=== PATIENT | male | born 1985 | race Caucasian/White ===

== ENCOUNTER → 2018-10-21 | Day surgery (SDC) | payer OTHER ==
[~2018-10-21] MED LIST: IBUPROFEN 400400 M2 PO; LEVAQUIN 500 M500 MG PO; NORCO 5-325 TA1 EACH PO; TRAMADOL 50 MG50 MG PO; VENTOLIN HFA 1818 GM INH
--- NOTE | ~2018-10-21 | OP ---
[facility] [address] [place] [address] OPERATIVE REPORT Name: HAYLEYGARRY Evans Room: [facility]#: [id number] Admission: 10/21/18 Attend Phys: Cedric Geller Discharge: Date of : 85 Report #: [id number] THIS REPORT FOR: //name// CC: Cedric Woodruff DATE OF SERVICE: 10/21/2018 PREOPERATIVE DIAGNOSIS: Symptomatic cholelithiasis. POSTOPERATIVE DIAGNOSIS: Symptomatic cholelithiasis. PROCEDURE: Laparoscopic cholecystectomy. SURGEON: Cedric Geller MD ANESTHESIA: General. ESTIMATED BLOOD LOSS: Minimal. SPECIMENS: Gallbladder. DESCRIPTION OF PROCEDURE: After informed consent was obtained, the patient was brought to the operating room and placed supine. SCDs were placed and working, preoperative antibiotics were administered, general anesthesia was induced. The abdomen was prepped and draped in the usual sterile fashion. A 10 mm incision was made above the umbilicus. Fascia was incised. Trocar was placed. Pneumoperitoneum was established. Three right upper quadrant 5 mm ports were placed. The gallbladder was grasped at the fundus and retracted cephalad. The infundibulum was grasped and retracted laterally. I dissected out the cystic duct and the cystic artery and the cystic plate. Cystic duct and artery were clipped and ligated leaving 2 clips on the remaining duct and 1 on the remaining artery. The gallbladder was then taken off the liver bed with electrocautery. It was placed into an Endopouch and removed. The fascia was then closed with a [id number]-un-bxnxo 0 Vicryl. Skin was closed with 4-0 Monocryl. Incisions were sealed with Dermabond. COMPLICATIONS: None. DISPOSITION: The patient was taken to recovery in satisfactory condition. By: [id number] Geller MD /nt
--- NOTE | ~2018-10-21 | H ---
[address] [address] HISTORY AND PHYSICAL Name: GARRY HARDY Room: [facility]#: [id number] Admission: 10/21/18 Attend Phys: Cedric Geller Discharge: Date of : 85 Report #: [id number] THIS REPORT FOR: //name// CC: Cedric Woodruff DATE OF SERVICE: 10/21/2018 CHIEF COMPLAINT: Abdominal pain. HISTORY OF PRESENT ILLNESS: This is a pleasant 33-year-old man with a 3-day history of abdominal pain. The pain is sharp, stabbing, located in the right upper quadrant. He had an ultrasound today, which demonstrates a large gallstone. 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 PAST SURGICAL HISTORY: He has had right knee meniscus surgery. SOCIAL HISTORY: No tobacco use. Alcohol use. He is employed. ALLERGIES: Listed in the chart. REVIEW OF SYSTEMS: A 12-point review of systems is negative except for those listed in the HPI. PHYSICAL EXAMINATION: GENERAL: He is awake, alert, in no acute distress. HEENT: Extraocular movements are intact. Sclerae without icterus. NECK: Supple. CARDIOVASCULAR: Regular rate and rhythm. CHEST: Fair air movement bilaterally. ABDOMEN: Soft, nondistended, moderately tender in the right upper quadrant. EXTREMITIES: Without clubbing, cyanosis or edema. NEUROLOGIC: Grossly intact. SKIN: Without rash or jaundice. ASSESSMENT AND PLAN: A 33-year-old man with symptomatic cholelithiasis, chronic cholecystitis. I will plan for laparoscopic cholecystectomy. Nature of the procedure, risks, benefits and alternatives were discussed with the patient and he requests to proceed. He was given time to ask questions and they were answered to his satisfaction. Some of the risks discussed included infection, [place] [address] HISTORY AND PHYSICAL Name: GARRY HARDY Room: [facility]#: [id number] Admission: 10/21/18 Attend Phys: Cedric Geller Discharge: Date of : 85 Report #: [id number] bleeding, damage to surrounding structures, damage to the common bile duct and bile leak. Fully informed. He consented to the procedure. By: [id number] [id number] Geller MD /davina
[2018-10-21 18:27] LABS: CALCIUM 8.6 mg/dL (8.5-10.1); CREATININE 1.2 mg/dL (0.6-1.3); POTASSIUM 4.1 mmol/L (3.5-5.1)
[2018-10-21 18:32] LABS: ALBUMIN 3.7 g/dL (3.4-5.0); TOTAL BILIRUBIN 0.8 mg/dL (<0.1-1.0); TOTAL PROTEIN 7.1 g/dL (6.4-8.2)
--- NOTE | 2018-10-26 09:08 | PATH ---
[facility] [address] [place] [address] PATHOLOGY RPT PROCEDURE Name: GARRY SHUKLA Room: [facility] M.R.#: [id number] Admission: 10/21/18 Date of : 85 Discharge: Report #: [id number] Path Case #: [id number] [facility] Accession Number: [id number] . 01 Material submitted: . gallbladder - GALLBLADDER . 01 Clinical history: . Cholelithiasis . 02 Diagnosis: Gallbladder, cholecystectomy: - Chronic cholecystitis, mild. - Cholelithiasis. (BEATRIZ:danilo; 10/25/2018) MBR/10/25/2018 . 02 Electronically signed: . Robert Parry MD, Pathologist NPI- [id number] . 01 Gross description: . The specimen is received in formalin, labeled "Garry Shukla, gallbladder", is intact gallbladder measuring 8.4 cm in length and 4.2 cm in maximum diameter with a glistening, smooth and a yellow-green serosa. The cystic duct is patent. The gallbladder lumen contains yellow-green, viscous bile and an irregular, glasslike semi-transparent calculus and measuring 1.9 x 1.3 x 1.0 cm. The mucosa is green and a trabeculated. The wall is 0.1 cm in average thickness. Painting Worker tissue is submitted in A1. (SWS; 10/24/2018) SHS/SHS . 02 Pathologist provided ICD-10: K80.10 . 02 CPT . 122188 Specimen Comment: A courtesy copy of this report has been sent to Specimen Comment: [phone], . Specimen Comment: Report sent to / DR MYLES Performed at: [address], [place], [place] [id number] MD Yosi Shukla MD Phone: [phone] Performed at: [address] [address] [place] [id number] MD Taurus Mahan MD Phone: [phone]
== END | disposition home or self-care (01) ==
LOC: M.SUR 17:02
PROVIDERS: Surgery
DX: K80.20 Calculus of gallbladder without cholecystitis without obstruction (principal); Z98.890 Other specified postprocedural states; Z88.2 Allergy status to sulfonamides; Z88.8 Allergy status to other drugs, medicaments and biological substances; Z79.899 Other long term (current) drug therapy

== ENCOUNTER 2018-10-22 16:34 | Emergency (ER) | payer OTHER ==
[~2018-10-22] VITALS: Ht 193 cm; Wt 130.2 kg
[~2018-10-22 16:34] MED LIST changes: -LEVAQUIN 500 M500 MG PO; -VENTOLIN HFA 1818 GM INH
[2018-10-22 16:40] VITALS: BP 129/80
[2018-10-22 17:06] LABS: BE -0.5 mmol/L (-2 to +3); PCO2 29.5 mmHg (35.0-45.0); pH 7.483 (7.340-7.450)
[2018-10-22 17:07] LABS: HEMOGLOBIN 14.8 gm/dL (14.0-18.0)
[2018-10-22 17:08] LABS: PO2 58.3 mmHg (75.0-100.0)
[2018-10-22 17:10] LABS: HEMATOCRIT 42.1 % (42.0-52.0); MCH 35.4 pg (26.0-34.0); MCHC 35.2 g/dL (28.0-37.0); MCV 100.5 fL (80.0-100.0); MPV 8.7 fl. (7.2-11.1); NUCLEATED RBCS 0 /100WBC; PLATELET COUNT* 192 thou/uL (150-400); RBC 4.19 mil/uL (4.50-6.00); WBC 9.3 thou/uL (4.0-11.0)
[2018-10-22 17:16] LABS: CALCIUM 8.4 mg/dL (8.5-10.1); CREATININE 1.3 mg/dL (0.6-1.3); POTASSIUM 3.9 mmol/L (3.5-5.1)
[2018-10-22 17:20] LABS: ALBUMIN 3.5 g/dL (3.4-5.0); MAGNESIUM 1.6 mg/dL (1.8-2.4); TOTAL BILIRUBIN 0.9 mg/dL (<0.1-1.0); TOTAL PROTEIN 7.4 g/dL (6.4-8.2)
[2018-10-22 17:38] LABS: INR 1.1; PROTIME 10.8 Seconds (9.20-11.50)
[2018-10-22 17:46] LABS: ABSOLUTE LYMPHOCYTES 0.4 thou/uL (0.8-5.3); ABSOLUTE MONOCYTES 0.7 thou/uL (0.0-1.2); ABSOLUTE NEUTROPHILS 8.2 thou/uL (1.6-8.1); PLATELET ESTIMATE ADEQUATE
[2018-10-22 17:47] LABS: MACROCYTES 1+
[2018-10-22 18:42] LABS: URINE BILIRUBIN NEGATIVE (Negative); URINE BLOOD NEGATIVE (Negative); URINE CLARITY CLEAR; URINE COLOR YELLOW; URINE GLUCOSE-RANDOM NEGATIVE (Negative); URINE KETONES NEGATIVE (Negative); URINE LEUKOCYTES-REFLEX NEGATIVE (Negative); URINE NITRITE-REFLEX NEGATIVE (Negative); URINE PROTEIN NEGATIVE (Negative); URINE SPECIFIC GRAVITY <= 1.005 (1.005-1.030)
[2018-10-22] MEDS ORDERED: VENTOLIN HFA 1818 GM INH (21:26)
[2018-10-22] MEDS ORDERED: LEVAQUIN 500 M500 MG PO (21:26)
[2018-10-22 22:16] VITALS: BP 136/88
--- NOTE | 2018-10-22 22:18 | NUR ---
HOSPITALIST INTO ROOM TO ASSESS PT FOR ADMISSION. PT STATES THAT HE WANTS TO GO HOME. PER JOHNNIE AND DR. BURGER, PT OKAY TO GO HOME. PT EDUCATED ON WHAT SIGNS AND SYMPTOMS TO WATCH FOR TO COME BACK.
== END 2018-10-22 22:29 | disposition home or self-care (01) ==
LOC: M.ERS 16:34 → M.TBA-ER 20:29 → M.ERS 20:29 → M.2W 21:00 → M.TBA-ER 21:00 → M.ERS 22:29
PROVIDERS: Personal Emergency Response Attendant
DX: I26.99 Other pulmonary embolism without acute cor pulmonale (principal); R50.9 Fever, unspecified; Z88.2 Allergy status to sulfonamides; Z88.8 Allergy status to other drugs, medicaments and biological substances; Z90.49 Acquired absence of other specified parts of digestive tract

== ENCOUNTER → 2018-10-24 | Outpatient (CLI) | payer OTHER ==
[~2018-10-24] MED LIST changes: +LEVAQUIN 500 M500 MG PO; +VENTOLIN HFA 1818 GM INH
== END ==
LOC: M.RAD 08:45
DX: J98.4 Other disorders of lung (principal); Z88.2 Allergy status to sulfonamides

== ENCOUNTER 2018-10-31 17:03 | Inpatient (IN) | payer OTHER ==
[~2018-10-31] VITALS: Ht 193 cm; Wt 127.6 kg
[2018-10-31 21:05] LABS: ABSOLUTE BASOPHILS 0.1 thou/uL (0.0-0.2); ABSOLUTE LYMPHOCYTES 2.6 thou/uL (0.8-5.3); ABSOLUTE MONOCYTES 1.7 thou/uL (0.0-1.2); ABSOLUTE NEUTROPHILS 12.7 thou/uL (1.6-8.1); BASOPHILS 0.5 %; EOSINOPHILS 0.1 %; HEMATOCRIT 41.6 % (42.0-52.0); HEMOGLOBIN 13.9 gm/dL (14.0-18.0); LYMPHOCYTES 15.4 %; MCH 33.7 pg (26.0-34.0); MCHC 33.4 g/dL (28.0-37.0); MCV 100.8 fL (80.0-100.0); MONOCYTES 9.8 %; MPV 8.6 fl. (7.2-11.1); NUCLEATED RBCS 0 /100WBC; PLATELET COUNT* 402 thou/uL (150-400); POLYS 74.2 %; RBC 4.12 mil/uL (4.50-6.00); RDW-CV 14.5 % (10.5-14.5); WBC 17.1 thou/uL (4.0-11.0)
[2018-10-31 21:15] LABS: CALCIUM 8.8 mg/dL (8.5-10.1); CREATININE 1.2 mg/dL (0.6-1.3)
[2018-10-31 21:25] LABS: URINE BILIRUBIN NEGATIVE (Negative); URINE BLOOD NEGATIVE (Negative); URINE CLARITY CLEAR; URINE COLOR YELLOW; URINE GLUCOSE-RANDOM NEGATIVE (Negative); URINE KETONES TRACE (Negative); URINE LEUKOCYTES-REFLEX NEGATIVE (Negative); URINE NITRITE-REFLEX NEGATIVE (Negative); URINE PROTEIN NEGATIVE (Negative); URINE SPECIFIC GRAVITY <= 1.005 (1.005-1.030); URINE UROBILINOGEN 0.2 E.U./dl (0.2-1.0)
[2018-10-31 21:27] LABS: TOTAL BILIRUBIN 0.6 mg/dL (<0.1-1.0); TOTAL PROTEIN 7.9 g/dL (6.4-8.2)
[2018-11-01] VITALS: BP 135/77
[2018-11-01 04:00] VITALS: BP 130/78
[2018-11-01 04:07] LABS: HEMATOCRIT 37.6 % (42.0-52.0); HEMOGLOBIN 12.7 gm/dL (14.0-18.0); MCH 33.8 pg (26.0-34.0); MCHC 33.9 g/dL (28.0-37.0); MCV 99.7 fL (80.0-100.0); MPV 8.7 fl. (7.2-11.1); RBC 3.77 mil/uL (4.50-6.00); RDW-CV 14.5 % (10.5-14.5); WBC 15.3 thou/uL (4.0-11.0)
[2018-11-01 04:29] LABS: ALBUMIN 2.5 g/dL (3.4-5.0); CALCIUM 8.3 mg/dL (8.5-10.1); CREATININE 1.1 mg/dL (0.6-1.3); TOTAL BILIRUBIN 0.5 mg/dL (<0.1-1.0); TOTAL PROTEIN 6.8 g/dL (6.4-8.2)
--- NOTE | 2018-11-01 06:42 | NUR ---
PATIENT AWAKE MOST OF THE NIGHT OFF AND ON DUE TO BEEPING IV PUMP (AIR IN LINE) PUMP CHANGED OUT ALONG WITH NEW TUBING. PT C/O PAIN X2 AND RECEIVED TYLENOL 650MG PO WITH SMALL SIP OF WATER. PT NPO SINCE 0500. PT UP AD AVILA TO BATHROOM. PT SAYS CONTINUES TO HAVE LOOSE BOWEL MOVEMENT AND URINATION IS NORMAL. PT PLACED IN ISOLATION FOR SPECIAL CONTACT. FREQUENTLY USED ITEMS AND CALL LIGHT WITHIN REACH. WILL CONTINUE TO MONITOR.
[2018-11-01 08:30] VITALS: BP 118/65
[2018-11-01 15:45] VITALS: BP 127/75
--- NOTE | 2018-11-01 17:05 | NUR ---
PATIENT CDIFF NEGATIVE. GI SAW PATIENT THIS AFTERNOON, ORDERS RECEIVED FOR FULL LIQUID DIET AND CIPRO/FLAGYL ABX. IV RESTARTED PER PATIENT REQUEST TO LEFT HAND, IVF AND SCHED ABX INFUSING. PATIENT UP TO SHOWER THIS AFTERNOON. NO COMPLAINTS OF PAIN.
[2018-11-02] VITALS: BP 115/71
[2018-11-02 04:39] LABS: HEMATOCRIT 39.3 % (42.0-52.0); HEMOGLOBIN 13.1 gm/dL (14.0-18.0); MCH 33.7 pg (26.0-34.0); MCHC 33.4 g/dL (28.0-37.0); MCV 100.8 fL (80.0-100.0); MPV 8.7 fl. (7.2-11.1); RBC 3.89 mil/uL (4.50-6.00); RDW-CV 14.6 % (10.5-14.5); WBC 7.9 thou/uL (4.0-11.0)
--- NOTE | 2018-11-02 05:12 | NUR ---
PATIENT SLEPT WELL DURING THIS SHIFT. PT UP TO BATHROOM WITH STEADY GAIT. PT CONTINUES TO HAVE LOOSE STOOLS. FLUIDS/ANTIBIOTICS INFUSING PER DR ORDER. PT DENIES PAIN/NAUSEA DURING THIS SHIFT. FREQUENTLY USED ITEMS AND CALL LIGHT WITHIN REACH. WILL CONTINUE TO MONITOR.
[2018-11-02 05:14] LABS: ALBUMIN 2.4 g/dL (3.4-5.0); CALCIUM 8.5 mg/dL (8.5-10.1); CREATININE 1.1 mg/dL (0.6-1.3); MAGNESIUM 2.2 mg/dL (1.8-2.4); POTASSIUM 4.2 mmol/L (3.5-5.1); TOTAL BILIRUBIN 0.4 mg/dL (<0.1-1.0); TOTAL PROTEIN 6.8 g/dL (6.4-8.2)
[2018-11-02 08:15] VITALS: BP 123/80
[2018-11-02] MEDS ORDERED: FLAGYL500 M1 PO (10:44)
[2018-11-02] MEDS ORDERED: CIPRO500 MG PO (10:44)
[2018-11-02 11:39] VITALS: BP 115/71
--- NOTE | 2018-11-02 14:08 | NUR ---
PATIENT ADVANCED TO LOW RESIDUE TODAY, TOLERATED FOR BREAKFAST AND LUNCH. REMAINS UP AD AVILA. IVF AND SCHED ABX GIVEN PER MAR ORDERS. OK PER GI TO GO HOME. VERBALIZES UNDERSTANDING OF PAPERWORK, SCRIPT CALLED INTO [facility] PER PATIENT REQUEST. PATIENT AMBULATED OUT WITH NURSING STAFF AND ALL BELONGINGS.
--- NOTE | 2018-11-05 12:32 | CON ---
[address] [address] CONSULTATION Name: GARRY HARDY Room: [address] M.R.#: [id number] Admission: 10/31/18 Attend Phys: Mary Horner MD Discharge: 11/02/18 Date of : 85 Report #: [id number] THIS REPORT FOR: //name// CC: Cedric Woodruff DO DICTATED BY: Christina Butler [facility] DATE OF SERVICE: 11/01/2018 Please note at the time of this dictation, the patient was seen and physically examined by myself. REASON FOR CONSULTATION: Cecal mass, questionable colitis. HISTORY OF PRESENT ILLNESS: This is a 33-year-old man who recently underwent a laparoscopic cholecystectomy for symptomatic cholelithiasis on 10/21/2018. He received preop antibiotics and then postop, he had some issues with some shortness of breath and coughing and it was felt that he may be developing pneumonia and he was placed on Levaquin for 10 days afterwards as well. Despite being on the Levaquin on Wednesday, he continued to have chilling episodes, running a low-grade fever, not much of an appetite. He was having very loose stools. He states that on Wednesday that he had 15 bile-like stools. He denied any bright red blood or any black tarry stools with this. He states he just did not feel well throughout the weekend and even at work yesterday prompting him to be evaluated and admitted. Now, his stooling has lessened somewhat. It is about 4-5, very loose. His pain is on the right lower quadrant. It is manageable. It is about 2 at the present. Prior to his laparoscopic cholecystectomy, he states he did not have any right lower quadrant pain and his bowels moved daily, soft and formed. He did have a colonoscopy back in 2011 that showed a polyp in the sigmoid that was a tubular adenoma and some internal hemorrhoids and his TI was normal. He also had some grade A esophagitis at that time. ALLERGIES: BACTRIM. MEDICATIONS: From home tramadol and Motrin. PAST MEDICAL HISTORY: Yfhqm-Seopdyikc-Vdhch. PAST SURGICAL HISTORY: Ablation in 2016. He had a meniscal repair in 2015 and recent laparoscopic cholecystectomy. FAMILY HISTORY: Negative for any GI or female [place] [address] CONSULTATION Name: GARRY HARDY Room: [address]#: [id number] Admission: 10/31/18 Attend Phys: Mary Horner MD Discharge: 11/02/18 Date of : 85 Report #: [id number] disease. SOCIAL HISTORY: Denies any tobacco or illegal drug use, but does drink alcohol socially. REVIEW OF SYSTEMS: Twelve-point review of systems is essentially negative except what is mentioned in the HPI. PHYSICAL EXAMINATION: VITAL SIGNS: Temperature 37.1, pulse 74, respirations 18, blood pressure 118/65. HEART: Regular rate and rhythm. LUNGS: Clear. ABDOMEN: Soft, positive bowel sounds in all 4 quadrants with right lower quadrant tenderness noted to palpation. LABORATORY DATA: Hemoglobin is 12.7; hematocrit is 37.6; white count was 17.1 on admission, down to 15.3; platelets 355; GFR is 77. Total bilirubin 0.5, alkaline phosphatase 96, ALT 71, AST is 26. DIAGNOSTIC STUDIES: CT scan shows a large inflammatory mass involving the cecum and terminal ileum in the right lower quadrant measuring up to 12.6 cm with surrounding fat stranding, but no obvious abscess. There was no small-bowel obstruction. This could represent appendicitis, cecal inflammatory process or neoplasm. IMPRESSION: 1. Abdominal pain, right lower quadrant. 2. Diarrhea. 3. Abnormal CT of the cecum and terminal ileum. 4. Leukocytosis. PLAN: 1. We will await stool culture. 2. Continue his Maxipime. 3. We will await above results to make further recommendations, but will need a colonoscopy at some point for evaluation. Thank you for allowing us to participate in this patient's care. Please do not hesitate to call with any questions in regard to this consult. <ELECTRONICALLY SIGNED> By: Wale Thakkar DO 11/05/18 1232 1220 [id number] Thakkar DO /nt
== END 2018-11-02 13:45 | disposition home or self-care (01) | DRG 392 ==
LOC: M.CT 17:03 → M.3W 19:14
PROVIDERS: ADMIT Internal Medicine
DX: K52.9 Noninfective gastroenteritis and colitis, unspecified (principal); K63.9 Disease of intestine, unspecified; Z88.8 Allergy status to other drugs, medicaments and biological substances; Z90.49 Acquired absence of other specified parts of digestive tract; Z88.1 Allergy status to other antibiotic agents